=== PATIENT | male | born 1990 | race Two or more races ===

== ENCOUNTER 2024-07-31 09:14 | Emergency (ER) | payer MEDICAID, SELFPAY ==
[2024-07-31 09:27] VITALS: BP 165/107; PULSE 82; RESP 19; TEMP 37; O2SAT 99; BMI 28.7
--- NOTE | 2024-07-31 09:32 | EDNOTE_ITS ---
ED General RME/HPI General Chief complaint: Headache Stated complaint: HEAD AND NECK PAIN RAD TO LEFT FOOT Time Seen by Provider: 07/31/24 09:38 Arrival date/time: 07/31/24 09:14 CC: Headache HPI for the last 24 to 48 hours patient has had a headache in the back of his neck that radiates up the back of his head, denies any fever or chills. Patient denies any neck rigidity neck tenderness or neck pain. Denies any nausea vomiting blurred vision or seeing spots. Patient states he was seen here recently and given medicines which help with a migraine . Patient is afebrile nontoxic-appearing not in any acute distress. Related Data Previous Rx's ?Medication ?Instructions ?Recorded cyclobenzaprine 10 mg tablet 10 mg PO HS #10 tabs 07/18 09/11 meloxicam 7.5 mg tablet 7.5 mg PO QDAY #10 tabs 07/18 09/11 Allergies Allergy/AdvReac Type Severity Reaction Status Date / Time No Known Allergies Allergy Verified 07/31/24 09:17 Review of Systems Review of Systems Narrative Review of Systems: GEN: No fever, no chills, no weight loss EYES: No discharge, no visual changes, no pain HEENT: No ear pain, no congestion, no sore throat PULM: No shortness of breath, no cough, no congestion CV: No chest pain, no dyspnea on exertion, no palpitations GI: No nausea, no vomiting, no diarrhea, no pain, no constipation : No frequency, no urgency, no dysuria MUSC/SKEL: No joint pain, no back pain SKIN: No rash PSYCH: No hallucinations, no depression HEME/LYMPH: No easy bleeding or bruising tendencies NEURO: No weakness, + headache ED Exam Narrative Physical exam: [General: In mild discomfort but not in any acute distress Head normocephalic HEENT: Eyes pupils are PERRLA EOMs are intact mouth pink moist membranes uvula is midline swallow symmetrical all other subsystems HEENT are within acceptable limits Neck is supple, full range of motion flexion extension and rotation. mild cervical paraspinal tenderness to palpation no rashes induration ulcerations. Pain is reproducible up with palpation to the occiput of the cranium. Chest equal chest rise nontender to palpation Respiratory: Clear to auscultation no wheezes crackles or rubs CV: Rate rhythm is regular no murmurs rubs or clicks Abdomen is soft nontender no masses positive bowel sounds all 4 quadrants Back: No CVA tenderness no spinous process tenderness from cervical spine thoracic and lumbar spine Skin: Intact no petechiae rash induration ulceration or crepitus Extremities: Moving all extremity against resistance cap refill less than 2 seconds neurosensory intact Neuro: Awake alert oriented x3 Glascow coma 15 no focal deficits] Course Course Course Narrative: Patient is insistent he was seen here 2 days ago for headache, however there is no records. Medical record double checked there is no different account number etc. regarding this patient. The patient will be discharged home now on the meloxicam and cyclobenzaprine. Quality Measures none Orders Category Date Time Status Ketorolac Inj [Toradol Inj] Med 07/31/24 09:32 Discontinued 30 mg IM X1 ONE Vital Signs Vital signs: Vital Signs Temperature 98.6 F 07/31/24 09:27 Pulse Rate 82 07/31/24 09:27 Respiratory Rate 19 07/31/24 09:27 Blood Pressure 165/107 H 07/31/24 09:27 Pulse Oximetry (%) 99 07/31/24 09:27 Oxygen Delivery Method Room Air 07/31/24 09:27 MDM Patient data External records reviewed:: [facility] previous records Clinical information provided by:: patient Social determinants that could affect healthcare access:: none Patient has the following chronic illnesses:: None How is presenting disease/condition affected by chronic disease/condition?: uneffected by Evaluation data The following diagnostics were reviewed and interpreted by me:: other (specify) (None) Lab and/or radiology exams considered but not ordered:: None Interpretation Summary: Tension headache Medications Medications considered but not ordered:: None Medication administrations:: Medication Administration History Discontinued Medications Ketorolac Tromethamine (Ketorolac Inj 60 Mg/2 Ml Vial) 30 mg IM X1 ONE Stop: 07/31/24 09:33 Last Admin: 07/31/24 09:39 Dose: 30 mg Documented By: OA None Consultations Consultation(s) initiated? (list below): No Diagnosis Differential Diagnosis ED Complaint MDM: Tension headache migraine cluster headache Most likely diagnosis given after review of the tests above:: Tension headache Admission Indicated Admission indicated?: not indicated Explain why admission is indicated or not indicated:: Stable for discharge Admission Request Was there a request for admission?: No Disposition Plan Disposition Plan: Discharge Discharge Attestation Discharge Attestation: The patient and all family members were given an opportunity to ask questions and understood the discharge instructions. Discharge instructions specifically effects, indications for sooner follow up or return to the emergency department, and the expected course of current diagnosis. Patient condition: Stable Medical Decision Making Differential Diagnosis Differential Diagnosis: Tension headache migraine cluster headache Discharge Plan Plan Patient Disposition: HOME (Self Care) Patient condition on transfer: Stable Prescriptions/Referrals Prescriptions/Med Rec: New cyclobenzaprine 10 mg tablet 10 mg PO HS Qty: 10 0RF meloxicam 7.5 mg tablet 7.5 mg PO QDAY Qty: 10 0RF Referrals: Bridger Crain MD [Physician] - In 1 week Problem List Clinical Impression: Tension headache Patient/Caregiver Discharge Instructions Education Materials: ED Headache, Tension Print Language: Slovenian Stand Alone Forms: Sophia Award Info., Work/School Release, Patient Portal Info Letter GWYN/STEPHON Supervising Physician GWYN/STEPHON Supervising Physician: Serge King ENP
[2024-07-31] MEDS: KETOROLAC INJ 60 MG/2 ML VIAL 30 MG IM (09:39)
== END 2024-07-31 10:23 | disposition home or self-care (01) ==
PROVIDERS: Emergency Provider Emergency Medicine; PCP Family Medicine
DX: G44.209 Tension-type headache, unspecified, not intractable (principal)
CPT/HCPCS: 96372; 99283; J1885

== ENCOUNTER 2025-01-06 20:50 | Emergency (ER) | payer MEDICAID, SELFPAY ==
[2025-01-06 20:51] VITALS: BMI 29.9
[2025-01-06 21:02] VITALS: BP 141/78; PULSE 87; RESP 18; TEMP 37.1; O2SAT 98
--- NOTE | 2025-01-06 21:33 | PD.EDANKLE ---
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 Patient denies fall/trauma. Limitations: no limitations Related Data Previous Rx's ?Medication ?Instructions ?Recorded cyclobenzaprine 10 mg tablet 10 mg PO HS #10 tabs 07/31/24 meloxicam 7.5 mg tablet 7.5 mg PO QDAY #10 tabs 07/31/24 Allergies Allergy/AdvReac Type Severity Reaction Status Date / Time No Known Allergies Allergy Verified 07/31/24 09:17 Review of Systems Review of Systems Systems Reviewed: All systems reviewed, normal except as documented Constitutional Constitutional: Reports system reviewed and no additional complaints, except as documented, Denies fever(s) and Denies headache(s) ENT Ears, Nose, Mouth, and Throat: Denies disequilibrium and Denies headache(s) Cardiovascular Cardiovascular: Reports system reviewed and no additional complaints, except as documented, Denies chest pain and Denies dyspnea Respiratory Respiratory: Reports system reviewed and no additional complaints, except as documented, Denies cough and Denies dyspnea Gastrointestinal Gastrointestinal: Reports system reviewed and no additional complaints, except as documented, Denies abdominal pain, Denies nausea and Denies vomiting Musculoskeletal Musculoskeletal: Reports as per HPI and Reports arthralgias Neurologic Neurologic: Reports system reviewed and no additional complaints, except as documented, Denies confusion, Denies disequilibrium and Denies headache(s) Psychiatric Psychiatric: Denies confusion Past Medical History Social History SMOKING STATUS: Never smoker ED Exam General Limitations: Present no limitations General appearance: Present alert and in no apparent distress Head Head exam: Present atraumatic Eye Eye exam: Present normal appearance, PERRL and EOMI ENT ENT exam: Present normal exam, normal oropharynx and mucous membranes moist Neck Neck exam: Present normal inspection, full ROM and trachea midline Chest Chest inspection: Present normal inspection and symmetric chest wall rise Respiratory Respiratory exam: Present normal lung sounds bilaterally Cardiovascular Cardiovascular exam: Present regular rate, normal rhythm and normal heart sounds Abdominal Exam Abdominal exam: Present soft and normal bowel sounds Extremities Exam Extremities exam: Present normal inspection and full ROM Back Exam Back exam: Present normal inspection and full ROM Neurological Exam Neurological exam: Present alert, oriented X3 and CN II-XII intact Psychiatric Psychiatric exam: Present normal affect and normal mood Skin Skin exam: Present warm, dry, intact and normal color Course Quality Measures none Orders Category Date Time Status Naproxen [Naprosyn] Med 01/06/25 21:31 Once 500 mg PO X1 ONE Vital Signs Vital signs: Vital Signs Temperature 98.7 F 01/06/25 21:02 Pulse Rate 87 01/06/25 21:02 Respiratory Rate 18 01/06/25 21:02 Blood Pressure 141/78 H 01/06/25 21:02 Pulse Oximetry (%) 98 01/06/25 21:02 Oxygen Delivery Method Room Air 01/06/25 21:02 O2 at 98% on RA and WNLs Extremity Injury, Lower MDM Narrative MDM Narrative:: 34M with no known PMH but likely homelessness presents to ED with 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 Patient denies fall/trauma. 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 Patient is not wearing socks and is generally disheveled. Patient is afebrile, calm, and alert. Given socks, meds, and international student counselor including to see podiatry. Patient data External records reviewed:: None Clinical information provided by:: patient Social determinants that could affect healthcare access:: none Patient has the following chronic illnesses:: none How is presenting disease/condition affected by chronic disease/condition?: no chronic disease Evaluation data The following diagnostics were reviewed and interpreted by me:: other (specify) (none) Lab and/or radiology exams considered but not ordered:: not ordered Interpretation Summary: n/a Medications / Prescriptions Medications or Prescriptions considered but not ordered:: ordered Medication administrations:: Medication Administration History Naproxen (Naproxen 250 Mg Tablet) 500 mg PO X1 ONE Stop: 01/06/25 21:32 above Consultations Consultation(s) initiated? (list below): No Diagnosis Extremity Injury, Lower Differential Diagnosis: ankle sprain and strain, acute internal derangement of knee, puncture wound of foot, fracture of toe, ankle fracture and other (foot pain) Most likely diagnosis given after review of the tests above:: foot pain Admission Indicated Admission indicated?: not indicated Admission Request Was there a request for admission?: No Disposition Plan Disposition Plan: Discharge Discharge Attestation Discharge Attestation: The patient and all family members were given an opportunity to ask questions and understood the discharge instructions. Discharge instructions specifically effects, indications for sooner follow up or return to the emergency department, and the expected course of current diagnosis. Patient condition: Stable Discharge Plan Plan Patient Disposition: HOME (Self Care) Discharge Disposition comment: Stable Prescriptions/Referrals Prescriptions/Med Rec: No Action cyclobenzaprine 10 mg tablet 10 mg PO HS Qty: 10 0RF meloxicam 7.5 mg tablet 7.5 mg PO QDAY Qty: 10 0RF Referrals: No Primary/Family,Physician [Primary Care Provider] - In 1 week Problem List Clinical Impression: Foot pain Patient/Caregiver Discharge Instructions Education Materials: Parts of a Foot, Foot and Ankle Exercises ... Additional Instructions: Please follow-up with PCP within 24-48 hours and return immediately if symptoms worsen. If problem persists, recommend outpatient PT and/or podiatry referral. In the meantime, rest, use ice/heat, and/or compression. Print Language: Lithuanian Stand Alone Forms: Patient Portal Info Letter GWYN/STEPHON Supervising Physician GWYN/STEPHON Supervising Physician: Dr. Montgomery
[2025-01-06] MEDS: NAPROXEN 250 MG TABLET 500 MG PO (21:41)
== END 2025-01-06 22:14 | disposition home or self-care (01) ==
PROVIDERS: Emergency Provider Emergency Medicine
DX: M79.672 Pain in left foot (principal); M79.671 Pain in right foot; G89.29 Other chronic pain
CPT/HCPCS: 99282; A9270